=== PATIENT | male | born 1965 | race African-American/Black ===

== ENCOUNTER 2024-04-22 14:42 | Emergency (ER) | payer OTHER ==
[2024-04-22 15:15] VITALS: BP 153/83; PULSE 90; RESP 17; TEMP 97.9; BMI 28.1
[2024-04-22 17:23] LABS: BASO % 0.2 % (0-2.0); EOS % 0.1 % (0-4.5); HEMATOCRIT 43.1 % (35.4-49); HEMOGLOBIN 14.3 GM/dL (11.7-16.9); LYMPH % 15.5 % (8-40); MCH 29.4 pg (25.7-33.7); MCHC 33.2 g/dl (32.0-35.9); MEAN CELL VOLUME 88.5 fl (80-96); MEAN PLT VOLUME 7.2 fl (7.5-11.1); MONO % 3.9 % (3.8-10.2); NEUT % 80.3 % (42.8-82.8); PLATELET COUNT 219 10^3/uL (134-434); RBC 4.88 M/mm3 (4.00-5.60); RDW 12.7 % (11.9-15.9); WHITE BLOOD COUNT 5.6 K/mm3 (4.0-10.0)
[2024-04-22 17:33] LABS: CALCIUM 9.5 mg/dL (8.5-10.1)
[2024-04-22 17:34] LABS: ALBUMIN 3.8 g/dl (3.4-5.0)
[2024-04-22 17:37] LABS: BLOOD UREA NITROGEN 13.1 mg/dL (7-18)
[2024-04-22 17:39] LABS: BILIRUBIN,TOTAL 0.4 mg/dL (0.2-1)
[2024-04-22] MEDS ORDERED: MECLIZINE HCL 25 MG TABLET (FP) ONE (17:50)
[2024-04-22] MEDS: MECLIZINE HCL 25 MG TABLET (FP) PO ONE (18:07)
[2024-04-22] MEDS: LACTATED RINGERS SOLUTION 1000 ML INFUS.BAG IV ONE (18:08)
== END 2024-04-22 20:28 | disposition home or self-care (01) ==
LOC: JER 14:42
DX: R42 Dizziness and giddiness (principal)
CPT/HCPCS: 36415; 70496-TC; 70498-TC; 80053; 84484; 85025; 93005; 93010; 99285-25